=== PATIENT | male | born 1995 | race Caucasian/White ===

== ENCOUNTER 2017-12-12 08:40 | Emergency (ER) | payer SELFPAY ==
--- NOTE | 2017-12-12 08:40 | DT_ITS ---
This patient was seen during an EMR downtime December 06, 2017 - December 13, 2017. This patient may have a combination of paper and electronic documentation or all paper documentation. All documentation is viewable within the e-chart portion of [facility] for each patient visit.
== END 2017-12-12 08:50 | disposition home or self-care (01) ==
LOC: ED 20:43
PROVIDERS: Emergency Provider Emergency Medicine
DX: L03.032 Cellulitis of left toe (principal)
CPT/HCPCS: 99282

== ENCOUNTER 2019-11-05 08:53 | Emergency (ER) | payer SELFPAY ==
[2019-11-05 08:54] VITALS: BP 138/76; PULSE 96; RESP 16; TEMP 36.4; O2SAT 100; BMI 20.7
--- NOTE | 2019-11-05 10:48 | ED.DCSUM_ITS ---
- ER Visit Summary Date of Service: 11/05/19 Chief Complaint: [Dental pain] History of Present Illness: The patient is a 24 M [presents the emergency department complaint of dental pain that started several weeks ago. Patient states that he used to use a lot of chewing tobacco but stopped using about 3 weeks ago and ever since that time has had increased sensitivity. Patient states that he had a cavity in his left upper molar that had a filling in it but then the filling fell out. Patient has been unable to see a dentist. He denies any fevers. Patient otherwise has no medical history.] Physical Examination: [HEENT-PERRLA, EOMI. Cranial nerves II through XII grossly intact. TMs clear. Mucous membranes moist. No adenopathy. Dentition- left upper molar #15 tender to palpation with cavity noted. No gingival erythema or abscess noted. No facial cellulitis noted. Cardiovascular-regular rate and rhythm without murmur or ectopy Lungs-clear to auscultation, chest wall stable without crepitus or subcu emphysema Abdomen-normoactive bowel sounds, soft, nontender, no rebound or rigidity, no peritoneal signs. Extremities-intact ?4, normal range of motion, normal pulses, atraumatic] Test Results: [None indicated] Emergency Department Course and Treatment: [] Treatment Plan: [Patient will be started on amoxicillin and given a prescription for [place]. He will be given referral to dentist for follow-up.] Disposition: [Discharged home in stable condition] Impression: [Dental pain secondary to dental caries] This note was generated with [employer] dictation software. It may contain incorrect words, spelling, and punctuation that were not noted in review of the chart prior to signing ED Disposition - Plan for ED Patient: Referrals: Care Physician,No Primary [Primary Care Provider] -
--- NOTE | 2019-11-05 10:50 | ED.DEP ---
ED Disposition - Plan for ED Patient: Instructions: ED Tooth Pain, ED CAVITY Dental Prescriptions: Amoxicillin 500 mg PO TID #30 tab Prescription Printed Hydrocodone Bitart/Apap 5-325 [[place] 5MG-325MG] 1 tab PO Q4H PRN PRN 2 Days #10 tab PRN Reason: Pain Prescription Printed Referrals: Care Physician,No Primary [Primary Care Provider] -
[2019-11-05 11:16] VITALS: RESP 18
== END 2019-11-05 11:16 | disposition home or self-care (01) ==
LOC: ED 11:11
PROVIDERS: Emergency Provider Emergency Medicine
DX: K02.9 Dental caries, unspecified (principal)
CPT/HCPCS: 99282

== ENCOUNTER 2020-12-25 20:04 | Emergency (ER) | payer SELFPAY ==
[2020-12-25 20:05] VITALS: BP 138/71; PULSE 90; RESP 16; TEMP 36.8; O2SAT 97; BMI 20.7
--- NOTE | 2020-12-25 20:28 | EDS_ITS ---
HPI <Dr. Lynnette Paul DO - Last Filed: 12/25/20 22:17> History of Present Illness Chief Complaint: Suicidal Detail of Chief Complaint: Depression and suicidal ideation worse over the last 4 days Informant: patient Associated Symptoms Associated Symptoms ED: hopelessness, suicidal ideation and suicidal thoughts Narrative Narrative: Patient presents to the emergency department with police escort. Patient has been feeling depressed and suicidal for the last 4 days. Patient states that he has a history of bipolar disorder and is currently not medicated and does not see a psychiatrist. Patient states that he went to his father's grave 4 days ago and that brought back a lot of memories. Tonight patient left his home with a handgun that belongs to him and was going to commit suicide. Patient sister called him and talked him out of it and called police. Patient denies any auditory or visual hallucinations. He denies recent illness. Prior similar symptoms: Yes [facility] <Dr. Lynnette Paul DO - Last Filed: 12/25/20 22:17> [facility] Medical History (Updated 12/25/20 @ 22:[address] Lynnette Paul DO) History of cyst of brain Home Medications NK 12/25/20 [History Last Taken Unknown] Allergy/AdvReac Type Severity Reaction Status Date / Time No Known Allergies Allergy Verified 12/25/20 20:08 Social History Smoking Status: Former smoker ROS <Dr. Lynnette Paul DO - Last Filed: 12/25/20 22:17> ROS ED Constitutional Constitutional ED: Reports systems reviewed and no addt'l complaints, except as documented; Denies body ache(s), change in weight or chills Eyes Eyes: Denies acute decrease in peripheral vision, change in vision, double visio n or loss of vision ENT ENT ED: Reports none; Denies ear pain, lip swelling, loss taste/smell, neck brian n, otalgia or sore throat Cardiovascular Cardiovascular: Reports none; Denies abdominal pain, chest pain with activity, leg edema, lightheadedness, palpitations, rapid heart rate or syncope Respiratory/Chest Respiratory/Chest: Reports none; Denies change in mental status, dry cough, dyspnea, hemoptysis, shortness of breath at rest or shortness of breath with exertion Gastrointestinal Gastrointestinal: Reports none; Denies abdominal pain, change in stool character, diarrhea, hematemesis, hematochezia, melena, rectal bleeding or vomiting Genitourinary Genitourinary ED: Reports none; Denies abdominal discomfort, anuria, dysuria, genital pain or polyuria Musculoskeletal Musculoskeletal: Reports none; Denies arthralgias, back pain, difficulty walking, extremity pain, muscle weakness or myalgias Integumentary Reports none; Denies abscess or rash Neurologic Neurologic: Reports none; Denies abnormal gait, confusion, focal weakness, frequent falls, headache(s), loss of vision, numbness, paresthesias, radicular pain, vertigo or weakness Psychiatric Psychiatric: Reports systems reviewed and no addt'l complaints, except as documented, none, depression, hopelessness, suicidal ideation and suicidal thoughts; Denies behavioral changes, confusion, difficulty concentrating, hallucinations, tactile hallucinations or visual hallucinations Endocrine Endocrinology: Denies none, cold intolerance, excessive sweating, fatigue or heat intolerance Hematologic/Lymphatic Hematologic/Lymphatic: Reports none; Denies anemia, easy bleeding or easy bruising Allergic/Immunologic Allergic/Immunologic ED: Denies as per HPI, none, lip swelling, mouth swelling, throat swelling, tongue swelling or hives EXAM <Dr. Lynnette Paul, DO - Last Filed: 12/25/20 22:17> Physical Exam Const Vital Signs: 12/25/20 20:05 12/25/20 22:04 12/25/20 23:00 Temperature 98.3 F Temperature Source Temporal Pulse Rate 90 Respiratory Rate 16 16 14 Blood Pressure 138/71 H Blood Pressure Mean 93 Pulse Ox 97 Oxygen Delivery Method Room Air 12/26/20 00:48 12/26/20 01:17 12/26/20 03:36 Temperature Temperature Source Pulse Rate 62 82 Respiratory Rate 14 16 16 Blood Pressure 102/68 Blood Pressure Mean 79 Pulse Ox 99 98 Oxygen Delivery Method Room Air Room Air 12/26/20 04:00 Temperature Temperature Source Pulse Rate 67 Respiratory Rate 18 Blood Pressure 124/65 H Blood Pressure Mean 84 Pulse Ox 99 Oxygen Delivery Method Positive well nourished and well developed General Appearance ED: well developed and NAD HEENT Reports TM's clear and moist mucous membranes normocephalic and atraumatic; Negative for trauma or tenderness Tympanic Membrane ED: Yes TM's clear Eyes PERRL and EOMs intact bilaterally General Eye ED: Negative for pale conjunctiva or scleral icterus Neck no lymphadenopathy, supple and no JVD General: Negative for tenderness Chest Wall inspection of chest normal and palpation of chest normal Chest: Negative for tenderness Resp normal respiratory effort and clear to auscultation bilaterally Effort and Inspection: Negative for respiratory distress or pain with movement Auscultation: Negative for rhonchi, wheezes or diminished lung sounds Cardio regular rate, regular rhythm, S1 normal heart sound, S2 normal heart sound and no murmurs Peripheral Pulses: pulses 2+ throughout GI normal to inspection, nondistended, normoactive bowel sounds, soft to palpation, non-tender, non-distended and no masses Back/Spine no CVA tenderness and no thoracic nor lumbar tenderness Extremity normal to inspection General Extremety ED: Negative for edema General Extremity: Negative for edema Neuro oriented x3, CN's II-XII intact bilaterally, no sensory deficits noted and gait normal Sensorium / Orientation: awake, alert, oriented to person, oriented to place and oriented to time Motor Exam: strength 5/5 throughout and strength abnormal Psych mental status grossly normal Skin no rashes or lesions noted and no wounds <Dr. Kevin Dahl, DO - Last Filed: 12/26/20 06:14> Physical Exam Const Vital Signs: 12/25/20 20:05 12/25/20 22:04 12/25/20 23:00 Temperature 98.3 F Temperature Source Temporal Pulse Rate 90 Respiratory Rate 16 16 14 Blood Pressure 138/71 H Blood Pressure Mean 93 Pulse Ox 97 Oxygen Delivery Method Room Air 12/26/20 00:48 12/26/20 01:17 12/26/20 03:36 Temperature Temperature Source Pulse Rate 62 82 Respiratory Rate 14 16 16 Blood Pressure 102/68 Blood Pressure Mean 79 Pulse Ox 99 98 Oxygen Delivery Method Room Air Room Air 12/26/20 04:00 Temperature Temperature Source Pulse Rate 67 Respiratory Rate 18 Blood Pressure 124/65 H Blood Pressure Mean 84 Pulse Ox 99 Oxygen Delivery Method MDM <Dr. Lynnette Paul, DO - Last Filed: 12/25/20 22:17> [facility] Narrative Medical decision making narrative: Patient with suicidal ideation and depression. Work-up in the emergency department unremarkable and he is medically cleared for psychiatric evaluation. Crisis will evaluate the patient and I expect he will require inpatient hospitalization and stabilization. Care of patient will be turned over to evening physician awaiting evaluation by crisis and final disposition. Lab Data Attestation: I reviewed the patient's lab results. Labs: Laboratory Results - last 24 hr 12/25/20 12/25/20 12/25/20 20:43 20:43 20:43 WBC RBC Hgb Hct MCV MCH MCHC RDW Std Deviation RDW Coeff of Vinod Plt Count MPV Immature Gran % (Auto) Neut % (Auto) Lymph % (Auto) [place] % (Auto) Eos % (Auto) Baso % (Auto) Absolute Neuts (auto) Absolute Lymphs (auto) Nucleated RBC % Sodium 141 Potassium 3.7 Chloride 108 H Carbon Dioxide 25.0 Anion Gap 8 BUN 17 Creatinine 1.04 Estim Creat Clear Calc 119.46 Est GFR (MDRD) Af Amer 112 Est GFR (MDRD) Non-Af 93 BUN/Creatinine Ratio 16.3 Glucose 82 Calcium 9.4 Urine Opiates Screen NEGATIVE Urine Methadone Screen NEGATIVE Ur Barbiturates Screen NEGATIVE Ur Phencyclidine Scrn NEGATIVE Ur Amphetamines Screen NEGATIVE U Methamphetamin-MDMA NEGATIVE U Benzodiazepines Scrn NEGATIVE Urine Cocaine Screen NEGATIVE U Cannabinoids Screen POSITIVE H Ur Drug Screen Comment Ethyl Alcohol < 3.0 12/25/20 20:43 WBC 8.5 RBC 4.57 L Hgb 14.4 Hct 42.1 MCV 92.1 MCH 31.5 MCHC 34.2 RDW Std Deviation 42.5 RDW Coeff of Vinod 12.5 Plt Count 245 MPV 10.0 Immature Gran % (Auto) 0.500 Neut % (Auto) 76.3 H Lymph % (Auto) 15.[address] % (Auto) 6.5 Eos % (Auto) 0.6 Baso % (Auto) 0.5 Absolute Neuts (auto) 6.5 Absolute Lymphs (auto) 1.33 Nucleated RBC % 0 Sodium Potassium Chloride Carbon Dioxide Anion Gap BUN Creatinine Estim Creat Clear Calc Est GFR (MDRD) Af Amer Est GFR (MDRD) Non-Af BUN/Creatinine Ratio Glucose Calcium Urine Opiates Screen Urine Methadone Screen Ur Barbiturates Screen Ur Phencyclidine Scrn Ur Amphetamines Screen U Methamphetamin-MDMA U Benzodiazepines Scrn Urine Cocaine Screen U Cannabinoids Screen Ur Drug Screen Comment Ethyl Alcohol <Dr. Kevin Dahl, DO - Last Filed: 12/26/20 06:14> MDM MDM Narrative Medical decision making narrative: 2330: Le: Patient signed out to me pending crisis evaluation. Crisis did evaluate also feels patient will require inpatient evaluation. Patient is medically cleared. Awaiting placement. [facility] [place] slipped filled out. Lab Data Labs: Laboratory Results - last 24 hr 12/25/20 12/25/20 12/25/20 20:43 20:43 20:43 WBC RBC Hgb Hct MCV MCH MCHC RDW Std Deviation RDW Coeff of Vinod Plt Count MPV Immature Gran % (Auto) Neut % (Auto) Lymph % (Auto) [place] % (Auto) Eos % (Auto) Baso % (Auto) Absolute Neuts (auto) Absolute Lymphs (auto) Nucleated RBC % Sodium 141 Potassium 3.7 Chloride 108 H Carbon Dioxide 25.0 Anion Gap 8 BUN 17 Creatinine 1.04 Estim Creat Clear Calc 119.46 Est GFR (MDRD) Af Amer 112 Est GFR (MDRD) Non-Af 93 BUN/Creatinine Ratio 16.3 Glucose 82 Calcium 9.4 Urine Opiates Screen NEGATIVE Urine Methadone Screen NEGATIVE Ur Barbiturates Screen NEGATIVE Ur Phencyclidine Scrn NEGATIVE Ur Amphetamines Screen NEGATIVE U Methamphetamin-MDMA NEGATIVE U Benzodiazepines Scrn NEGATIVE Urine Cocaine Screen NEGATIVE U Cannabinoids Screen POSITIVE H Ur Drug Screen Comment Ethyl Alcohol < 3.0 12/25/20 20:43 WBC 8.5 RBC 4.57 L Hgb 14.4 Hct 42.1 MCV 92.1 MCH 31.5 MCHC 34.2 RDW Std Deviation 42.5 RDW Coeff of Vinod 12.5 Plt Count 245 MPV 10.0 Immature Gran % (Auto) 0.500 Neut % (Auto) 76.3 H Lymph % (Auto) 15.[address] % (Auto) 6.5 Eos % (Auto) 0.6 Baso % (Auto) 0.5 Absolute Neuts (auto) 6.5 Absolute Lymphs (auto) 1.33 Nucleated RBC % 0 Sodium Potassium Chloride Carbon Dioxide Anion Gap BUN Creatinine Estim Creat Clear Calc Est GFR (MDRD) Af Amer Est GFR (MDRD) Non-Af BUN/Creatinine Ratio Glucose Calcium Urine Opiates Screen Urine Methadone Screen Ur Barbiturates Screen Ur Phencyclidine Scrn Ur Amphetamines Screen U Methamphetamin-MDMA U Benzodiazepines Scrn Urine Cocaine Screen U Cannabinoids Screen Ur Drug Screen Comment Ethyl Alcohol Discharge Plan Triage Chief Complaint: Suicidal ED Provider: Kevin Dahl Dx/Rx/DC Orders Clinical Impression: Depression, Suicidal ideation Prescriptions: No Action NK RF: 0 Primary Care Provider: Care Physician,No Primary Referrals: Care Physician,No Primary [Primary Care Provider] -
[2020-12-25 20:51] LABS: Absolute Lymphocyte Count 1.33 X10^3/uL (0.83-4.51); Absolute Neutrophil Count 6.5 X10^3/uL (2.0-7.7); Basophil# 0.04 X10^3/uL; Basophil% 0.5 % (0-1); Eosinophil# 0.05 X10^3/uL; Eosinophils% 0.6 % (0-5); Hematocrit 42.1 % (40-54); Hemoglobin 14.4 g/dL (13.0-16.5); Lymphocyte # 1.33 X10^3/ul (0.83-4.51); Lymphocyte % 15.6 % (19-41); Mean Corp Hgb Conc 34.2 g/dL (32-36); Mean Corpuscular Hgb 31.5 pg (27.0-32.0); Mean Corpuscular Volume 92.1 fL (80-94); Monocyte# 0.55 X10^3/uL; Monocyte% 6.5 % (0-10); NRBC Flagged by Analyzer 0 % (0-5); Neutrophil # 6.49 X10^3/uL (2.7-7.7); Neutrophil % 76.3 % (47-70); Platelet Count 245 K/mm3 (150-450); RBC Distribution Width CV 12.5 % (11.6-14.6); RBC Distribution Width SD 42.5 fl (35.1-43.9); Red Blood Count 4.57 M/mm3 (4.6-6.2); White Blood Count 8.5 K/mm3 (4.4-11.0)
[2020-12-25 21:05] LABS: Amphetamine Urine VISTA NEGATIVE (<1000 ng/mL); Barbiturate Urine VISTA NEGATIVE (< 200 ng/mL); Benzodiazepine Urine VISTA NEGATIVE (< 200 ng/mL); Cocaine Urine VISTA NEGATIVE (< 300 ng/mL); Ecstacy Urine VISTA NEGATIVE (< 500 ng/mL); Methadone Urine VISTA NEGATIVE (< 300 ng/mL); PCP Urine VISTA NEGATIVE (< 25 ng/mL); THC Urine VISTA POSITIVE (< 50 ng/mL); Vista UDS pH Range 7
[2020-12-25 21:13] LABS: Anion Gap 8 (5-15); BUN 17 mg/dL (7-18); BUN/Creat Ratio 16.3 RATIO (10-20); Calcium,Total 9.4 mg/dL (8.5-10.1); Chloride 108 mmol/L (98-107); Creatinine, Serum 1.04 mg/dL (0.70-1.30); EST Glomerular Filtration Rate 93 mL/min (>60); Est Glom Filt Rate - Afr Amer 112 mL/min (>60); Estimated Creatinine Clearance 119.46 ml/min; Glucose 82 mg/dL (74-106); Potassium 3.7 mmol/L (3.5-5.1); Sodium Level 141 mmol/L (136-145)
[2020-12-25 22:04] VITALS: RESP 16
[2020-12-25 22:09] LABS: Alcohol, Blood (Medical)-Serum < 3.0 mg/dL
--- NOTE | 2020-12-25 22:14 | NURSING ---
CALLED CRISIS AT [phone]
[2020-12-25 23:00] VITALS: RESP 14
[2020-12-26] VITALS (15 sets, daily range): BP systolic 102–129; BP diastolic 62–71; PULSE 62–82; RESP 14–18; TEMP 37; O2SAT 98–100
--- NOTE | 2020-12-26 06:32 | EKG12_ITS ---
Test Reason : MENTAL CLEARANCE Blood Pressure : / mmHG Vent. Rate : 055 BPM Atrial Rate : 055 BPM P-R Int : 150 ms QRS Dur : 108 ms QT Int : 402 ms P-R-T Axes : 041 085 059 degrees QTc Int : 384 ms Sinus bradycardia with sinus arrhythmia Otherwise normal ECG Confirmed by DAISHA ALFARO, BRISA ([id number]), writer editor RUTH PARR ([id number]) on 12/27/2020 12:58:03 PM Referred By: AMERICO Confirmed By:BRISA ASHTON MD
--- NOTE | 2020-12-26 06:35 | ED.RN ---
IVAN FROM CRISIS REPORTS THEY ARE ATTEMPTING PLACEMENT AT [facility]
[2020-12-26 06:57] LABS: AST(SGOT) 17 U/L (15-37); Alanine Aminotransfer ALT/SGPT 20 U/L (16-61); Albumin, Serum 4.6 g/dL (3.2-5.0); Alkaline Phosphatase 59 U/L (45-117); Bilirubin, Direct 0.18 mg/dL (0.00-0.30); Globulin 3.1 g/dL (2.2-4.2); Protein, Total 7.7 g/dL (6.4-8.2)
--- NOTE | 2020-12-26 07:39 | ED.RN ---
faxed liver profile and ekg to [facility]
--- NOTE | 2020-12-26 12:38 | NURSING ---
spoke with Jossie from Crisis, pt accepted to [facility], Pinky is working on transportation
--- NOTE | 2020-12-26 12:45 | NURSING ---
spoke with Jossie from Crisis, ETA of 60 minutes for transportation
--- NOTE | 2020-12-26 15:27 | NURSING ---
called [facility] to speak with them about the ride since it was suppose to be here at 145pm. I called [facility], Jossie is up on PCU with a patient, Joanne said she was going to contact Jossie to find out what was going on with the transportation.
--- NOTE | 2020-12-26 15:33 | NURSING ---
[facility] care arrived at 330pm.
== END 2020-12-26 15:35 ==
PROVIDERS: Emergency Medicine; Emergency Provider Emergency Medicine
DX: R45.851 Suicidal ideations (principal); F31.9 Bipolar disorder, unspecified; Z87.891 Personal history of nicotine dependence
CPT/HCPCS: 80048; 80076; 80307; 82077; 85025; 87426; 93005; 99285

== ENCOUNTER 2021-06-01 23:57 | Emergency (ER) | payer SELFPAY ==
[2021-06-01 23:59] VITALS: BP 110/75; PULSE 97; RESP 18; TEMP 36.4; O2SAT 100; BMI 21.2
[2021-06-02 00:01] VITALS: BP 110/75; PULSE 97; RESP 18; TEMP 36.4; O2SAT 100
--- NOTE | 2021-06-02 00:13 | EX.ED.DYSGE1 ---
HPI History of Present Illness Chief Complaint: Dental Narrative Narrative: Patient is a 25-year-old male who states that he has had problems with his teeth. He states he broke a right lower molar and only had a temporary filling placed based on its cost and his disdain for the dentist. He states he will occasionally have pain with exposure to cold or eating but over the last day has had constant pain to the jaw. He denies any fevers or chills or difficulty breathing or swallowing but has concern for infection and therefore comes in for evaluation [facility] Medical History History of cyst of brain Home Medications ziprasidone HCl [Geodon] 60 mg PO DAILY 06/01/21 [History Last Taken Unknown] penicillin V potassium 500 mg PO 4X/DAY #40 tab 06/02/21 [Rx Last Taken Unknown] Allergy/AdvReac Type Severity Reaction Status Date / Time No Known Allergies Allergy Verified 06/01/21 23:58 Social History Smoking Status: Former smoker ROS ROS ED Constitutional Constitutional ED: Denies chills or fever(s) ENT ENT ED: Reports other Details: Positive dental pain ; Denies sore throat Cardiovascular Cardiovascular: Denies chest pain Respiratory/Chest Respiratory/Chest: Denies cough or dyspnea Gastrointestinal Gastrointestinal: Denies abdominal pain, diarrhea, nausea or vomiting Musculoskeletal Musculoskeletal: Denies myalgias Integumentary Denies rash Neurologic Neurologic: Denies headache(s) EXAM Physical Exam Const Vital Signs: 06/01/21 23:59 06/02/21 00:01 Temperature 97.5 F L 97.5 F L Temperature Source Temporal Temporal Pulse Rate 97 97 Respiratory Rate 18 18 Blood Pressure 110/75 110/75 Blood Pressure Mean 86 86 Pulse Ox 100 100 Positive well nourished and well developed General Appearance ED: well developed HEENT Reports moist mucous membranes HEENT Narrative: Patient has dental caries present in the right lower jaw consistent with his report of previous dental fracture with temporary filling. There are no oral lesions no soft tissue swelling or dental abscess noted. Eyes PERRL and EOMs intact bilaterally Neck supple Neck Narrative: No brawny edema in the submental space to suggest Alexis's angina Resp normal respiratory effort and clear to auscultation bilaterally Cardio regular rate and regular rhythm Extremity normal to inspection Neuro oriented x3 and CN's II-XII intact bilaterally Sensorium / Orientation: alert Motor Exam: strength 5/5 throughout Psych mental status grossly normal Skin no rashes or lesions noted MDM MDM MDM Narrative Medical decision making narrative: Patient presented to the ER afebrile and normotensive with out physical exam findings to suggest overt dental abscess or Alexis's angina. Therefore I felt no need for imaging or laboratory studies. Patient's history is most consistent with a developing dental infection therefore he will be placed on antibiotics. However as he does not have signs of systemic infection there is no need for further work-up and he can be discharged home at this time. Discharge Plan Triage Chief Complaint: Dental ED Provider: Ramsey Steele Dx/Rx/DC Orders Clinical Impression: Dental caries, Dental infection Instructions: ED Dental Pain Prescriptions: New penicillin V potassium 500 mg tablet 500 mg PO 4X/DAY Qty: 40 RF: 0 No Action ziprasidone HCl [Geodon] 60 mg Capsule 60 mg PO DAILY RF: 0 Primary Care Provider: Care Physician,No Primary Referrals: Care Physician,No Primary [Primary Care Provider] - Disposition Disposition: Home, Self Care
[2021-06-02] MEDS: Penicillin Vk 250 MG Tablet 500 MG PO (00:30)
== END 2021-06-02 00:32 | disposition home or self-care (01) ==
LOC: ED 06-02 00:25
PROVIDERS: Emergency Provider Emergency Medicine
DX: K04.7 Periapical abscess without sinus (principal); K02.9 Dental caries, unspecified; Z98.811 Dental restoration status; Z87.891 Personal history of nicotine dependence
CPT/HCPCS: 99283

== ENCOUNTER 2023-01-09 12:20 | Emergency (ER) | payer OTHER, SELFPAY ==
[2023-01-09 12:21] VITALS: BP 128/90; PULSE 88; RESP 14; TEMP 36.6; O2SAT 99; BMI 21.8
--- NOTE | 2023-01-09 12:45 | CT_ITS ---
HISTORY: headache. TECHNIQUE: Multiple axial images were obtained of the head without intravenous contrast. A radiation dose optimization technique was used for this scan. 253 images. COMPARISON: 10/12/2013. FINDINGS: BRAIN PARENCHYMA: No significant attenuation abnormality. No acute intra-axial hemorrhage. CSF SPACES: 3.5 x 5.2 cm right temporofrontal arachnoid cyst again seen. Cerebral ventricles, cortical sulci, and other extra-axial CSF spaces otherwise within normal limits in size for age. No midline shift or other significant mass effect. No acute extra-axial hemorrhage. OTHER: Chronic right temporal craniotomy. Minimal sphenoid sinus mucosal thickening. Unremarkable orbits. CT/Brain/Head without Contrast IMPRESSION: No acute intracranial process identified. Redemonstration of right frontotemporal arachnoid cyst. Electronically Signed: Toya Dawson MD at 13:42 EDT ,
--- NOTE | 2023-01-09 13:02 | EX.ED.DYSGE1 ---
HPI <ISHAN Leija - Last Filed: 01/09/23 20:58> History of Present Illness Chief Complaint: Headache Narrative Narrative: Patient presenting today with a gradual onset headache that he has had since Wednesday night. He reports that he was camping over the weekend for 05 January and attributed his headache to that. However, it became so severe on Wednesday that he had to go to the ER in [place] where he was given IV fluids and Toradol. Reports that this did not give him much relief. The headache has caused him to vomit a few times and he has photophobia. He reports a history of migraines that have not bothered him for a long time that he attributes to a history of an arachnoid cyst that had to be surgically removed. He also reports having dental pain since and is wondering if that is what is causing his head pain. PFSH <ISHAN Leija - Last Filed: 01/09/23 20:58> [facility] Medical History History of cyst of brain Home Medications ziprasidone HCl 60 mg capsule (Geodon) 60 mg PO DAILY 06/01/21 [History Last Taken Unknown] penicillin V potassium 500 mg tablet 500 mg PO 4X/DAY #40 tabs 06/02/21 [Rx Last Taken Unknown] amoxicillin 500 mg tablet 500 mg PO TID #30 tabs 01/09/23 [Rx Last Taken Unknown] Allergy/AdvReac Type Severity Reaction Status Date / Time No Known Allergies Allergy Verified 01/09/23 12:21 Social History Smoking Status: Former smoker ROS <ISHAN Leija - Last Filed: 01/09/23 20:58> ROS ED Constitutional Constitutional ED: Denies chills, fever(s) or sweats Eyes Eyes: Denies change in vision Cardiovascular Cardiovascular: Denies chest pain or palpitations Respiratory/Chest Respiratory/Chest: Denies cough or dyspnea Gastrointestinal Gastrointestinal: Denies abdominal pain, nausea or vomiting Musculoskeletal Musculoskeletal: Denies arthralgias or myalgias Integumentary Denies abscess, Abrasions or rash Neurologic Neurologic: Reports headache(s); Denies confusion, dizziness or weakness Psychiatric Psychiatric: Denies depression EXAM <ISHAN Leija - Last Filed: 01/09/23 20:58> Physical Exam Const Vital Signs: 01/09/23 12:21 Temperature 98 F Temperature Source Temporal Pulse Rate 88 Respiratory Rate 14 Blood Pressure 128/90 H Blood Pressure Mean 102 Pulse Ox 99 Oxygen Delivery Method Room Air Positive well nourished, well developed and no apparent distress General Appearance ED: well developed HEENT Reports normocephalic and head/scalp atraumatic HEENT Narrative: Multiple dental caries, temporary filling to the right mandibular second molar, no dental abscess, no trismus, no signs of Ludewig's angina Mouth ED: Yes moist mucous membranes normal Eyes PERRL and EOMs intact bilaterally Neck full ROM and supple Chest Wall inspection of chest normal Resp normal respiratory effort and clear to auscultation bilaterally Cardio regular rate and regular rhythm GI soft to palpation, non-tender, non-distended and no masses Back/Spine normal ROM and normal to inspection Extremity normal to inspection and full ROM Neuro oriented x3, CN's II-XII intact bilaterally, moves all extremities, no focal motor deficits and no sensory deficits noted Sensorium / Orientation: awake and alert Psych mental status grossly normal and thought process normal Skin no rashes or lesions noted and no wounds <Dr. Bradley Toth MD - Last Filed: 01/09/23 14:08> Physical Exam Const Vital Signs: 01/09/23 12:21 Temperature 98 F Temperature Source Temporal Pulse Rate 88 Respiratory Rate 14 Blood Pressure 128/90 H Blood Pressure Mean 102 Pulse Ox 99 Oxygen Delivery Method Room Air MDM <ISHAN Leija - Last Filed: 01/09/23 20:58> [facility] Narrative Medical decision making narrative: Patient presenting due to a constant headache that he has had since Wednesday evening. He has a history of a arachnoid cyst that did need surgical removal in the past and presented with headaches at that time but thinks that this feels different. He also is reporting with right mandibular dental pain to his second molar. He had to have a root canal done and needed to have a crown placed to that tooth but never followed up to have it placed because he did not have insurance at the time. He does have multiple dental caries and pain to palpation to that tooth. He will be started on amoxicillin for dental infection. Given his history of brain surgery and prior cyst, head CT obtained and does show a right frontotemporal arachnoid cyst. It is unclear whether or not this is causing his pain, it could be from the dental infection. He was given Toradol here for his pain. He was given a PCP referral as well as a dental referral sheet. He will be discharged home in stable condition and is comfortable with plan. He has been given return instructions. Radiography Diagnostic Testing: Clinical Impression(s) from Imaging Studies Brain CT 01/09/23 12:45 IMPRESSION: No acute intracranial process identified. Redemonstration of right frontotemporal arachnoid cyst. Electronically Signed: Toya Dawson MD at 13:42 EDT , <Dr. Bradley Toth MD - Last Filed: 01/09/23 14:08> MDM Radiography Diagnostic Testing: Clinical Impression(s) from Imaging Studies Brain CT 01/09/23 12:45 IMPRESSION: No acute intracranial process identified. Redemonstration of right frontotemporal arachnoid cyst. Electronically Signed: Toya Dawson MD at 13:42 EDT , Treatment and Re-Evaluation Comments:: Seen and evaluated independently and in conjunction with physician photographer assistant. Agree with notes above unless documented otherwise. Headaches mostly right side, coexisting with dental discomfort right mandibular molar that he states he needs a cap on. He started taking some leftover amoxicillin from someone else yesterday. No fevers, chills, bleeding, discharge. Exam: Neurologically intact, some photophobia, neck supple. No dental abscess no drainable collection. Temporary filling present at tender tooth #30. With patient's history of surgical brain lesion, we were happy to repeat his CT. It does show an arachnoid cyst but nothing acute. I do think the dental pain is probably causing his headache as does he. Will prescribe him amoxicillin and advised close outpatient follow-up, we given Toradol here which helped a little. Discharge Plan Triage Chief Complaint: Headache ED Midlevel Provider: Rosario Calderon ED Provider: Bradley Toth Dx/Rx/DC Orders Clinical Impression: Arachnoid cyst, Headache, Odontalgia Instructions: ED Dental Pain Prescriptions: New amoxicillin 500 mg tablet 500 mg PO TID Qty: 30 0RF No Action ziprasidone HCl [Geodon] 60 mg Capsule 60 mg PO DAILY penicillin V potassium 500 mg tablet 500 mg PO 4X/DAY Qty: 40 0RF Primary Care Provider: Care Physician,No Primary Referrals: Alexandria Drake MD [Med Staff - [facility]] - Care Physician,No Primary [Primary Care Provider] - Dentist,Your [STAFF PHYSICIAN] - As soon as possible Activity Restrictions/Additional Instructions: CT did show presence of a right frontotemporal arachnoid cyst. This is unlikely to be the cause of your headaches, but if your tooth issues get solved and get better and you still have headaches, make sure you follow-up with your doctor. Disposition Disposition: Home, Self Care Discharge Date/Time: 01/09/23 14:17
[2023-01-09] MEDS: Ketorolac 15 MG/ML Vial IM (13:08)
== END 2023-01-09 14:17 | disposition home or self-care (01) ==
PROVIDERS: Emergency Provider Emergency Medicine; Visit Provider Emergency Medicine
DX: R51.9 Headache, unspecified (principal); K08.89 Other specified disorders of teeth and supporting structures; Z87.891 Personal history of nicotine dependence; G93.0 Cerebral cysts
CPT/HCPCS: 70450; 96372; 99282

== ENCOUNTER 2023-05-22 18:15 | Emergency (ER) | payer OTHER, SELFPAY ==
[2023-05-22 18:16] VITALS: BP 113/72; PULSE 83; RESP 14; TEMP 36.6; O2SAT 99; BMI 22.1
--- NOTE | 2023-05-22 18:46 | EDS_ITS ---
HPI History of Present Illness HPI Narrative: Patient presents with right knee injury that occurred today. Patient states he twisted his right knee. Patient states that he has been having pain with weightbearing ever since. Patient describes his pain as a constant pressure but sharp at times. Patient states it is worse with certain movements. Patient denies any clicking or popping sensation. Patient denies any paresthesias. Patient states his knee feels weak and feels like it wants to give out on him. Patient denies any other injuries. Chief Complaint: Lower Extremity Injury Occured/Mechanism Mechanism/Context: Yes fall Onset/Context/Timing Onset: Today Context: Sudden Onset Timing: Continuous Quality of Pain: Sharp (At times) and - (Pressure) Location: Right knee Worsened by: Movement, weightbearing Relieved by: Nothing Associated Symptoms Associated Symptoms: Positive for Weakness; Negative for Parasthesia or Loss of Funtion [facility] Medical History (Updated 05/22/23 @ 19:[address] Ender Reilly DO) History of cyst of brain Home Medications ziprasidone HCl 60 mg capsule (Geodon) 60 mg PO DAILY 06/01/21 [History Last Taken Unknown] oxcarbazepine 150 mg tablet mg 05/22/23 [History Last Taken 05/22/23] Allergy/AdvReac Type Severity Reaction Status Date / Time No Known Allergies Allergy Verified 05/22/23 18:16 Surgical History (Updated 05/22/23 @ 18:[address] Ender Reilly DO) Hx of brain surgery Social History Smoking Status: Former smoker ROS ROS ED Constitutional Constitutional ED: Denies chills or fever(s) Eyes Eyes: Denies blurry vision or change in vision ENT ENT ED: Denies rhinorrhea or sore throat Cardiovascular Cardiovascular: Denies chest pain or palpitations Respiratory/Chest Respiratory/Chest: Denies cough or dyspnea Gastrointestinal Gastrointestinal: Denies nausea or vomiting Genitourinary Genitourinary ED: Denies dysuria or hematuria Musculoskeletal Musculoskeletal: Denies back pain or neck pain Integumentary Denies abscess or rash Neurologic Neurologic: Denies headache(s) or weakness Allergic/Immunologic Allergic/Immunologic ED: Denies mouth swelling or urticaria EXAM Physical Exam Const Vital Signs: 05/22/23 18:16 Temperature 98 F Temperature Source Temporal Pulse Rate 83 Respiratory Rate 14 Blood Pressure 113/72 Blood Pressure Mean 85 Pulse Ox 99 Oxygen Delivery Method Room Air Positive well nourished and well developed General Appearance ED: well developed HEENT Reports moist mucous membranes Neck full ROM and supple Extremity Extremity Narrative: There is tenderness over the medial aspect of the right knee. There is mild tenderness along the joint line. There is no effusion noted. There is no bony crepitance or step-off noted. Extensor mechanism is intact. Strength is 5/5 bilaterally in the lower extremities. There are no sensory deficits noted. There is mild laxity with valgus testing. Neuro oriented x3, CN's II-XII intact bilaterally, moves all extremities and no sensory deficits noted Sensorium / Orientation: alert Motor Exam: strength 5/5 throughout Psych mental status grossly normal MDM MDM MDM Narrative Medical decision making narrative: Differential diagnosis includes sprain, fracture, patellar dislocation, and contusion. X-rays of the right knee will be obtained to assess for fracture and contusion. Radiography Diagnostic Testing: Clinical Impression(s) from Imaging Studies Knee X-Ray 05/22/23 19:15 IMPRESSION: Normal x-ray examination of the knee. Electronically Signed: Jeff Thomas MD at 19:49 EST , X-rays of the right knee were obtained. There are 4 views. On my independent interpretation, there is no acute fracture or dislocation. There is no effusion noted. Radiologist also interpreted the x-rays and agrees. Treatment and Re-Evaluation Narrative: Patient was advised of his findings. Patient was instructed to ice and elevate the right knee. Patient was instructed to take Tylenol or ibuprofen as needed for pain. Patient was given a knee immobilizer. Patient was instructed to follow-up with his primary care physician in 5 to 7 days. Patient was instructed to return if worse in any way. Patient understood and was agreeable with the plan. All questions were answered. Discharge Plan Triage Chief Complaint: Lower Extremity Injury ED Provider: Ender Reilly Dx/Rx/DC Orders Clinical Impression: Right knee sprain Instructions: ED Knee Sprain Prescriptions: No Action ziprasidone HCl [Geodon] 60 mg Capsule 60 mg PO DAILY oxcarbazepine 150 mg tablet Patient Comments: TAKE 1 TABLET BY MOUTH TWICE DAILY Primary Care Provider: Care Physician,No Primary Referrals: Care Physician,No Primary [Primary Care Provider] - Disposition Disposition: Home, Self Care
--- NOTE | 2023-05-22 19:15 | RAD_ITS ---
STUDY: X-RAY - RIGHT KNEE REASON FOR EXAM: Male, 27 years old. Injury/Pain TECHNIQUE: 4 view(s) of the knee. COMPARISON: None. FINDINGS: Normal visualized distal femur. Normal visualized proximal tibia and fibula. Normal proximal tibiofibular articulation. Normal medial femorotibial compartment. Normal lateral femorotibial compartment. Normal patellofemoral articulation. The soft tissue structures are unremarkable. RAD/Knee 4 or More Views IMPRESSION: Normal x-ray examination of the knee. Electronically Signed: eJff Thomas MD at 19:49 EST ,
== END 2023-05-22 20:21 | disposition home or self-care (01) ==
PROVIDERS: Emergency Provider Emergency Medicine; Visit Provider Emergency Medicine
DX: S83.91XA Sprain of unspecified site of right knee, initial encounter (principal); Z87.891 Personal history of nicotine dependence; X50.0XXA Overexertion from strenuous movement or load, initial encounter
CPT/HCPCS: 73564; 99283

== ENCOUNTER 2024-07-03 20:32 | Emergency (ER) | payer OTHER, SELFPAY ==
[2024-07-03 20:33] VITALS: BP 136/78; PULSE 95; RESP 16; TEMP 36.6; O2SAT 98; BMI 22.1
--- NOTE | 2024-07-03 22:21 | EX.ED.DYSGE1 ---
HPI History of Present Illness Chief Complaint: Lower Extremity Injury Informant: patient Narrative Narrative: Patient is a 29-year-old male with past medical history depression. Roughly 3 weeks ago he tripped over a cord causing a salt and land on his left leg which cut his left quadriceps muscle. He underwent surgery at outside hospital secondary to this. He states he has been doing well but yesterday morning he was walking down a small hill when he slipped causing his left leg to shoot out from underneath him and he fell backwards. After this injury he noticed he was having pain and swelling along the area where the surgery was recently performed. He denies any numbness tingling or weakness fevers or chills but states he is concern for repeat injury and therefore comes in for evaluation [facility] Medical History (Updated 07/03/24 @ 22:[address] Ramsey Steele DO) History of cyst of brain Home Medications ?Medication ?Instructions ?Recorded ?Last Taken ?Type ziprasidone HCl 60 mg capsule 60 mg PO DAILY 06/01/21 Unknown History (Francisco) oxcarbazepine 150 mg tablet mg 05/22/23 05/22/23 History sulfamethoxazole 800 1 tab PO BID 7 days #14 tabs 07/03/24 Unknown Rx mg-trimethoprim 160 mg tablet (Bactrim DS) Allergy/AdvReac Type Severity Reaction Status Date / Time No Known Allergies Allergy Verified 07/03/24 20:35 Surgical History (Updated 05/22/23 @ 18:[address] Ender Reilly DO) Hx of brain surgery Social History Smoking Status: Former smoker ROS ROS ED Constitutional Constitutional ED: Denies chills or fever(s) ENT ENT ED: Denies sore throat Cardiovascular Cardiovascular: Denies chest pain Respiratory/Chest Respiratory/Chest: Denies cough or dyspnea Gastrointestinal Gastrointestinal: Denies abdominal pain, diarrhea, nausea or vomiting Genitourinary Genitourinary ED: Denies dysuria Musculoskeletal Musculoskeletal: Reports other Details: Positive left thigh pain and swelling Integumentary Reports other Details: Positive redness left thigh Neurologic Neurologic: Denies headache(s) or paresthesias Hematologic/Lymphatic Hematologic/Lymphatic: Denies easy bleeding or easy bruising EXAM Physical Exam Const Vital Signs: 07/03/24 20:33 Temperature 97.8 F Temperature Source Oral Pulse Rate 95 Respiratory Rate 16 Blood Pressure 136/78 H Blood Pressure Mean 97 Pulse Ox 98 Oxygen Delivery Method Room Air Positive well nourished and well developed General Appearance ED: well developed HEENT HEENT Narrative: Normocephalic atraumatic Eyes PERRL and EOMs intact bilaterally General Eye ED: Negative for scleral icterus Neck supple Resp normal respiratory effort and clear to auscultation bilaterally Cardio regular rate and regular rhythm Extremity Extremity Narrative: Patient has sutures in place to the left anterior mid thigh consistent with recent quadriceps muscle laceration. There is asymmetric soft tissue swelling and surrounding redness and warmth most consistent with hematoma based on patient's report of symptoms occurring after a fall. There is pain on palpation but patient still has strength with leg extension indicating the muscle and tendon is intact. However there is a small defect noted along the midportion of the thigh near the vastus medialis concerning for a grade 2 muscle strain/partial tear. Compartments are still soft and compressible going against compartment syndrome Negative Homans' sign bilaterally Neuro oriented x3, CN's II-XII intact bilaterally and no sensory deficits noted Sensorium / Orientation: alert Psych mental status grossly normal Skin Skin Narrative: Soft tissue changes to the left thigh as documented above MDM MDM MDM Narrative Medical decision making narrative: Patient arrived to the ER with stable vitals. He reported his leg was healing well until this sudden fall roughly 24 hours ago. After the fall is when the leg became painful swollen and red. I do not feel this is secondary infection based on the sudden onset and without posterior pain I have low concern for DVT. History and exam is most consistent with a partial muscle tear with hematoma secondary to the injury and the fact he has pain and small defect but there is no true loss of motion or strength. At this time I have low concern for underlying bony injury and therefore there is no need for an x-ray as MRI will be the only test to show the partial tear. The patient will be treated symptomatically and will follow-up with orthopedic surgeon to discuss further testing and/or treatment options regarding the partial tear but as he is neurovascular intact without compartment syndrome there is no need for further workup and he is otherwise safe for discharge. History & Record Review Discussion w/independent historian: Patient Discharge Plan Triage Chief Complaint: Lower Extremity Injury ED Provider: Ramsey Steele Dx/Rx/DC Orders Clinical Impression: Injury of quadriceps muscle, Hematoma, Depression Instructions: ED Hematoma, ED Quadriceps Tendon Rupture Prescriptions: New sulfamethoxazole-trimethoprim [Bactrim DS] 800-160 mg tablet 1 tab PO BID 7 Days Qty: 14 0RF No Action ziprasidone HCl [Geodon] 60 mg Capsule 60 mg PO DAILY oxcarbazepine 150 mg tablet Patient Comments: TAKE 1 TABLET BY MOUTH TWICE DAILY Primary Care Provider: Care Physician,No Primary Referrals: Care Physician,No Primary [Primary Care Provider] - Activity Restrictions/Additional Instructions: Please follow-up with your orthopedic surgeon for repeat evaluation. Your history and exam indicate you have a partial tear to your quadriceps muscle. The surrounding redness is most likely blood underneath your skin known as hematoma. Your body will resolve this over time. Continue with Tylenol and or Motrin for pain control you may ice and Ghanshyam wrap the area to help with swelling and pain. Return to the ER should you have any further concerns Print Language: Romanian Disposition Disposition: Home, Self Care
== END 2024-07-03 22:43 | disposition home or self-care (01) ==
PROVIDERS: Emergency Provider Emergency Medicine; Visit Provider Emergency Medicine
DX: S76.112A Strain of left quadriceps muscle, fascia and tendon, initial encounter (principal); Z87.891 Personal history of nicotine dependence; W17.81XA Fall down embankment (hill), initial encounter; Y93.01 Activity, walking, marching and hiking; F32.A Depression, unspecified; Z79.899 Other long term (current) drug therapy; S70.12XA Contusion of left thigh, initial encounter
CPT/HCPCS: 99282

== ENCOUNTER 2024-07-06 23:04 | Emergency (ER) | payer OTHER, SELFPAY ==
[2024-07-06 23:05] VITALS: BP 129/88; PULSE 99; RESP 18; TEMP 36.6; O2SAT 97; BMI 22.2
[2024-07-06 23:07] VITALS: BP 129/88; PULSE 99; RESP 18; TEMP 36.6; O2SAT 97
[2024-07-06] MEDS: 0.9% Normal Saline (1000mL) 1,000 ML 999 ML IV (23:26)
[2024-07-06] MEDS: Piperacil/Tazobactam 3.375 GM in 0.9% Normal Saline (50mL MB+) 50 ML IV (23:35)
[2024-07-07 00:01] LABS: Anion Gap 6 (5-15); BUN 19 mg/dL (7-18); BUN/Creat Ratio 20.3 RATIO (10-20); Calcium,Total 9.1 mg/dL (8.5-10.1); Chloride 105 mmol/L (98-107); Creatinine, Serum 0.94 mg/dL (0.70-1.30); EST Glomerular Filtration Rate 102 mL/min (>60); Est Glom Filt Rate - Afr Amer 123 mL/min (>60); Estimated Creatinine Clearance 137.02 ml/min; Glucose 101 mg/dL (74-106); Potassium 3.4 mmol/L (3.5-5.1); Sodium Level 140 mmol/L (136-145)
[2024-07-07 00:04] LABS: Lactic Acid 0.7 mmol/L (0.4-1.9)
[2024-07-07 00:07] VITALS: BP 118/77; PULSE 60; RESP 18; TEMP 36.6; O2SAT 96
[2024-07-07 00:20] LABS: Absolute Lymphocyte Count 2.12 X10^3/uL (0.83-4.51); Absolute Neutrophil Count 5.4 X10^3/uL (2.0-7.7); Basophil# 0.04 X10^3/uL; Basophil% 0.5 % (0-1); Eosinophil# 0.16 X10^3/uL; Eosinophils% 1.9 % (0-5); Hematocrit 38.9 % (40-54); Hemoglobin 13.3 g/dL (13.0-16.5); Lymphocyte # 2.12 X10^3/ul (0.83-4.51); Lymphocyte % 24.9 % (19-41); Mean Corp Hgb Conc 34.2 g/dL (32-36); Mean Corpuscular Hgb 31.9 pg (27.0-32.0); Mean Corpuscular Volume 93.3 fL (80-94); Mean Platelet Vol. 10.8 fl (6.2-12.0); Monocyte# 0.75 X10^3/uL; Monocyte% 8.8 % (0-10); NRBC Flagged by Analyzer 0 % (0-5); Neutrophil # 5.41 X10^3/uL (2.7-7.7); Neutrophil % 63.7 % (47-70); Platelet Count 257 K/mm3 (150-450); RBC Distribution Width CV 12.6 % (11.6-14.6); RBC Distribution Width SD 43.4 fl (35.1-43.9); Red Blood Count 4.17 M/mm3 (4.6-6.2); White Blood Count 8.5 K/mm3 (4.4-11.0)
[2024-07-07 00:37] LABS: Procalcitonin < 0.04 ng/mL (0.00-0.09)
[2024-07-07 01:04] VITALS: BP 114/73; PULSE 65; RESP 18; O2SAT 99
[2024-07-07] MEDS: Lidocaine 2% /Epi 1:100 (20ml) 20 ML VIAL INFILT (01:12)
--- NOTE | 2024-07-07 01:33 | EX.ED.DYSGE1 ---
HPI History of Present Illness Chief Complaint: Wound Check [facility] Medical History (Updated 07/07/24 @ 01:[address] Ramsey Steele, DO) History of cyst of brain Home Medications ?Medication ?Instructions ?Recorded ?Last Taken ?Type ziprasidone HCl 60 mg capsule 60 mg PO DAILY 06/01/21 Unknown History (Francisco) oxcarbazepine 150 mg tablet mg 05/22/23 05/22/23 History sulfamethoxazole 800 1 tab PO BID 7 days #14 tabs 07/03/24 Unknown Rx mg-trimethoprim 160 mg tablet (Bactrim DS) trazodone 100 mg tablet 100 mg PO QHS 07/06/24 Unknown History Allergy/AdvReac Type Severity Reaction Status Date / Time No Known Allergies Allergy Verified 07/06/24 23:05 Surgical History Hx of brain surgery Social History Smoking Status: Former smoker EXAM Physical Exam Const Vital Signs: 07/06/24 23:05 07/06/24 23:07 07/07/24 00:07 Temperature 97.8 F 97.8 F 97.8 F Temperature Source Oral Oral Oral Pulse Rate 99 99 60 Respiratory Rate 18 18 18 Blood Pressure 129/88 H 129/88 H 118/77 Blood Pressure Mean 101 101 90 Pulse Ox 97 97 96 Oxygen Delivery Method Room Air Room Air Room Air 07/07/24 01:04 Temperature Temperature Source Pulse Rate 65 Respiratory Rate 18 Blood Pressure 114/73 Blood Pressure Mean 86 Pulse Ox 99 Oxygen Delivery Method Room Air [facility] Lab Data Labs: Laboratory Results - last 24 hr 07/06/24 23:25 WBC 8.5 RBC 4.17 L Hgb 13.3 Hct 38.9 L MCV 93.3 MCH 31.9 MCHC 34.2 RDW Std Deviation 43.4 RDW Coeff of Vinod 12.6 Plt Count 257 MPV 10.8 Immature Gran % (Auto) 0.200 Neut % (Auto) 63.7 Lymph % (Auto) 24.9 [place] % (Auto) 8.8 Eos % (Auto) 1.9 Baso % (Auto) 0.5 Absolute Neuts (auto) 5.4 Absolute Lymphs (auto) 2.12 Nucleated RBC % 0 Sodium 140 Potassium 3.4 L Chloride 105 Carbon Dioxide 29.0 Anion Gap 6 BUN 19 H Creatinine 0.94 Estim Creat Clear Calc 137.02 Est GFR (MDRD) Af Amer 123 Est GFR (MDRD) Non-Af 102 BUN/Creatinine Ratio 20.3 H Glucose 101 Lactic Acid 0.7 Calcium 9.1 Procalcitonin < 0.04 Discharge Plan Triage Chief Complaint: Wound Check ED Provider: Ramsey Steele Dx/Rx/DC Orders Clinical Impression: Abscess of left thigh Instructions: ED Abscess Incision And Drainage Prescriptions: No Action ziprasidone HCl [Geodon] 60 mg Capsule 60 mg PO DAILY oxcarbazepine 150 mg tablet Patient Comments: TAKE 1 TABLET BY MOUTH TWICE DAILY trazodone 100 mg tablet 100 mg PO QHS sulfamethoxazole-trimethoprim [Bactrim DS] 800-160 mg tablet 1 tab PO BID 7 Days Qty: 14 0RF Primary Care Provider: Care Physician,No Primary Referrals: Care Physician,No Primary [Primary Care Provider] - Activity Restrictions/Additional Instructions: Please take the Bactrim which was prescribed at your last visit as directed. Remove the packing after 48 to 72 hours. Follow-up with your surgeon for repeat evaluation as directed and return to the ER should you have any further concern Print Language: Pashto Disposition Disposition: Home, Self Care
[2024-07-07 01:35] VITALS: BP 118/74; PULSE 65; RESP 18; TEMP 36.6; O2SAT 99
== END 2024-07-07 01:40 | disposition home or self-care (01) ==
PROVIDERS: Emergency Provider Emergency Medicine; Visit Provider Emergency Medicine
DX: L02.416 Cutaneous abscess of left lower limb (principal); Z87.891 Personal history of nicotine dependence
CPT/HCPCS: 10060; 80048; 83605; 84145; 85025; 96365; 96366; 99282; A4216

== ENCOUNTER 2025-06-20 18:55 | Emergency (ER) | payer OTHER, SELFPAY ==
[2025-06-20 18:57] VITALS: BP 152/85; PULSE 84; RESP 18; TEMP 36.1; O2SAT 100; BMI 24.7
--- NOTE | 2025-06-20 20:54 | EDS_ITS ---
HPI History of Present Illness Chief Complaint: Dental Narrative Narrative: Patient was seen and examined after presenting to ED for dental abscess he has a dentist just has not had the opportunity for an appointment yet because it is further down the line became quick and many yet no fevers or chills. PFSH PFSH Medical History History of cyst of brain Home Medications ?Medication ?Instructions ?Recorded ?Last Taken ?Type ziprasidone HCl 60 mg capsule 60 mg PO DAILY 06/01/21 Unknown History (Geodon) oxcarbazepine 150 mg tablet mg 05/22/23 05/22/23 Histo ry sulfamethoxazole 800 1 tab PO BID 7 days #14 tabs 07/03/24 Unknown Rx mg-trimethoprim 160 mg tablet (Bactrim DS) trazodone 100 mg tablet 100 mg PO QHS 07/06/24 Unkno wn History amoxicillin 875 mg-potassium 875 mg (0.875 x 875-125 m g) PO 06/20/25 Unknown Rx clavulanate 125 mg tablet Q12H #20 TABLETS Allergy/AdvReac Type Severity Reaction Status Date / Time No Known Allergies Allergy Verified 06/20/25 18:59 Surgical History Hx of brain surgery Social History Smoking Status: Former smoker ROS ROS ED ROS Narrative Pertinent Positives: Dental abscess dental pain Pertinent Negatives: Fevers chills vomiting The remainder of review of systems negative unless otherwise stated in the HPI above. Systems reviewed including constitutional, psychiatric, cardiovascular, respiratory, integument, HENT, gastrointestinal. EXAM Physical Exam Narrative Exam Narrative: Patient is afebrile hemodynamically stable does not appear toxic or in distress when I went to evaluate the patient he was spitting into the sink it looks like he had a periapical abscess that ruptured no lingual or sublingual edema no brawny tenderness normal range of motion of head and neck Const Vital Signs: 06/20/25 18:57 Temperature 97 F L Temperature Source Temporal Pulse Rate 84 Respiratory Rate 18 Blood Pressure 152/85 H Blood Pressure Mean 107 Pulse Ox 100 Oxygen Delivery Method Room Air MDM MDM MDM Narrative Medical decision making narrative: Nursing notes, triage notes, available previous documentation, and vital signs were reviewed. Any discrepancies noted were addressed. Differential Diagnoses: Periapical abscess not trench mouth not Alexis's angina or angioedema very low suspicion for deep space neck infection Previous Documentation Reviewed: None available or applicable at this time. ED Course: Patient presenting with what appears to have been a periapical abscess in the left upper portion of his mouth by the incisors a ruptured patient states that he was taking some old spare amoxicillin but we will start the patient on Augmentin return precautions follow-up recommendations provided he is stable to follow-up with his dentist at the soonest available appointment he can be discharged home. This note was made utilizing voice recognition software. All attempts were made to correct spelling or other errors prior to note completion. However, due to the fast-paced nature of emergency medicine, some errors may still be present. Discharge Plan Triage Chief Complaint: Dental ED Provider: Luly Gagnon Dx/Rx/DC Orders Clinical Impression: Acute periapical abscess, Pain due to dental caries Instructions: ED Dental Abscess Prescriptions: New amoxicillin-pot clavulanate 875-125 mg tablet 875 mg PO Q12H Qty: 20 0RF No Action ziprasidone HCl [Geodon] 60 mg Capsule 60 mg PO DAILY oxcarbazepine 150 mg tablet Patient Comments: TAKE 1 TABLET BY MOUTH TWICE DAILY trazodone 100 mg tablet 100 mg PO QHS sulfamethoxazole-trimethoprim [Bactrim DS] 800-160 mg tablet 1 tab PO BID 7 Days Qty: 14 0RF Primary Care Provider: Care Physician,No Primary Referrals: Care Physician,No Primary [Primary Care Provider, Medical] Activity Restrictions/Additional Instructions: Take the antibiotics to completion follow-up with your dentist please return if getting worse Print Language: [place] Disposition Disposition: Home, Self Care
[2025-06-20 21:06] VITALS: BP 120/71; PULSE 70; RESP 16; TEMP 36.9; O2SAT 97
== END 2025-06-20 21:08 | disposition home or self-care (01) ==
PROVIDERS: Emergency Provider Specialist/Technologist Athletic Trainer; Visit Provider Specialist/Technologist Athletic Trainer
DX: K04.7 Periapical abscess without sinus (principal); K02.9 Dental caries, unspecified; Z87.891 Personal history of nicotine dependence; K08.89 Other specified disorders of teeth and supporting structures
CPT/HCPCS: 99282